=== PATIENT | female | born 1935 | race Caucasian/White ===

== ENCOUNTER → 2021-07-06 | Outpatient (CLI) | payer MEDICARE ==
--- NOTE | 2021-07-19 09:40 | REP ---
INDICATION: MULTINODULAR GOITER. COMPARISON: 02/25/2021. TECHNIQUE: Real-time sonographic evaluation of thyroid performed. FINDINGS: Both lobes of the thyroid are enlarged, right lobe measuring 8.4 x 3.1 x 3.6 cm and left lobe 7.8 x 2.6 x 3.7 cm. The prior measurements obtained were 6.1 cm length of left lobe and 6.4 cm length right lobe. Multiple bilateral nodules are again identified. It is difficult to compare to the prior exam as the location of the prior nodules is not signified with regard to upper or lower pole. In the right upper pole there is a solid nodule 1.1 x 0.8 x 0.8 cm. Just inferior to that there is a solid nodule 1.5 x 0.9 x 1.6 cm which is grossly similar to the prior exam. In the right lower pole there is a solid nodule with small cystic areas measuring 2.0 x 2.1 x 2.3 cm, not definitely visualized on the prior study. A solid nodule in the right lower pole measures 1.6 x 1.3 x 1.5 cm. A nodule in the isthmus measures 1.4 x 1.7 cm, not measured on the prior study but grossly similar in size. In the left upper pole a solid nodule with small cystic areas measures 1.3 x 1.2 x 1.2 cm. A solid nodule in the mid left lobe measures 1.9 x 1.7 x 1.7 cm. This is grossly unchanged. A solid nodule in the left lower pole measures 1.0 x 1.1 x 1.4 cm, grossly unchanged. IMPRESSION: Multinodular goiter as discussed in detail above. <Electronically signed by Subhash Colin > 07/19/21 [id number]
== END ==
LOC: M RAD 11:54
PROVIDERS: ATTEND Specialist
DX: E04.2 Nontoxic multinodular goiter (principal)